=== PATIENT | female | born 1950 ===

== ENCOUNTER 2017-01-25 12:35 | Emergency (ER) | payer MEDICAID, OTHER ==
[2017-01-25 12:35] VITALS: BMI 32.7
[2017-01-25 12:50] VITALS: BP 123/63; RESP 16; TEMP 98; O2SAT 100
--- NOTE | 2017-01-25 13:27 | ED PDOC ---
Lower Extremity Pain/Injury Time Seen by Provider: 01/25/17 13:26 Chief Complaint (Nursing): Lower Extremity Problem/Injury History Per: Patient History/Exam Limitations: no limitations Onset/Duration Of Symptoms: Waxing/Waning Current Symptoms Are (Timing): Still Present Severity: Moderate Additional Complaint(s): 66-year-old female, PMHx includes Diabetes, Hypertension, Hypercholesterolemia, Hypothyroidism, Peripheral Edema, and Rheumatoid Arthritis, presents to the emergency department with complaints of foot pain. Patient states she sustained an injury to her left foot while walking very fast a few days ago. States she has been experiencing persistent pain, that is non-radiating. She notes associated swelling and bruising to the fourth digit. Patient denies nausea/ vomiting, numbness, tingling, or any other associated symptoms. No other complaints at this time. Past Medical History Reviewed: Historical Data, Nursing Documentation, Vital Signs Vital Signs: Last Vital Signs Temp 98.0 F 01/25/17 12:48 Pulse 98 H 01/25/17 12:48 Resp 16 01/25/17 12:48 BP 123/63 01/25/17 12:48 Pulse Ox 100 01/25/17 12:48 - Medical History PMH: Anemia, Asthma, Cardia Arrhythmia, Colonic Polyps, Gall Bladder Disease, HTN, Hypercholesterolemia, Hypothyroidism, Peripheral Edema, Rheumatoid Arthritis Denies: Chronic Kidney Disease - Surgical History Surgical History: Appendectomy, Endoscopy - Family History Family History: States: Unknown Family Hx - Home Medications Home Medications: Ambulatory Orders Medication Instructions Recorded Acetaminophen/Tramadol [place] PRN 05/17/14 [Tramadol/APAP 325 mg-37.5 mg] Albuterol Sulfate [Albuterol PRN 05/17/14 Sulfate 3 ml] Albuterol Sulfate [Ventolin Hfa] DAILY 05/17/14 Aspirin 81 mg PO DAILY 05/17/14 Cilostazol 100 mg PO BID 05/17/14 Clopidogrel [Plavix] 75 mg PO DAILY 05/17/14 Docusate Sodium 100 mg PO DAILY 05/17/14 Fluticasone Nasal [Flonase] 1 spr NS DAILY 05/17/14 Fluticasone/Salmeterol 250/50 PRN 05/17/14 [Advair Diskus 250/50] Gabapentin [Neurontin] 300 mg PO TID 05/17/14 GlipiZIDE SR [Glucotrol XL] 10 mg PO DAILY 05/17/14 Insulin Human Regular [Novolin R] PRN 05/17/14 Levothyroxine Sodium 0.15 mg PO DAILY 05/17/14 [Levothyroxine] Losartan Potassium 100 mg PO DAILY 05/17/14 Lovastatin 40 mg PO DAILY 05/17/14 Montelukast [Singulair] 10 mg PO DAILY 05/17/14 Omeprazole 20 mg PO DAILY 05/17/14 Sitagliptin Phosphate [Januvia] 100 mg PO TID 05/17/14 Ursodiol 300 mg PO TID 05/17/14 hydrOXYzine HCl [Atarax] 25 mg PO PRN 05/17/14 - Allergies Allergies/Adverse Reactions: Allergies Allergy/AdvReac Type Severity Reaction Status Date / Time No Known Allergies Allergy Verified 01/25/17 12:48 Review of Systems ROS Statement: Except As Marked, All Systems Reviewed And Found Negative Constitutional: Negative for: Fever Cardiovascular: Negative for: Chest Pain Respiratory: Negative for: Shortness of Breath Gastrointestinal: Negative for: Vomiting Musculoskeletal: Positive for: Foot Pain (Left). Negative for: Back Pain Neurological: Negative for: Weakness, Numbness, Headache, Dizziness Physical Exam - Reviewed Nursing Documentation Reviewed: Yes Vital Signs Reviewed: Yes - Physical Exam Appears: Positive for: Non-toxic, No Acute Distress Head Exam: Positive for: ATRAUMATIC, NORMOCEPHALIC Skin: Positive for: Warm, Dry. Negative for: Rash Eye Exam: Positive for: Normal appearance Neck: Positive for: Painless ROM Respiratory: Negative for: Accessory Muscle Use, Respiratory Distress Extremity: Positive for: Tenderness, Capillary Refill (<2 seconds), Deformity, Swelling, Other (LEFT foot: Swelling, deformity and echymosis to the 4th digit. Pain with range of motion. Pulses intact). Negative for: Pedal Edema, Calf Tenderness Neurologic/Psych: Positive for: Alert, Oriented - ECG O2 Sat by Pulse Oximetry: 100 - Radiology X-Ray: Interpreted by Or X-Ray Interpretation: Fracture (to 4th MTP DIP) Medical Decision Making Medical Decision Making: Impression: 66y/o F w/ left foot pain s/p injury 3 days ago Diff Dx (includes but not limited to) Fracture vs Contusion Plan: * X-Ray: L Foot (3 view) * Reassess and Disposition dX: fx to toe-pt with surgical shoe and cesar tape.f/u with podiatry Scribe Attestation: Documented by Delfina Matias, acting as a scribe for YOVANI Krishnan. Provider Attestation: All medical record entries made by the Scribe were at my direction and personally dictated by me. I have reviewed the chart and agree that the record accurately reflects my personal performance of the history, physical exam, medical decision making, and the department course for this patient. I have also personally directed, reviewed, and agree with the discharge instructions and disposition. Disposition - Clinical Impression Clinical Impression: Toe fracture - Patient ED Disposition Is Patient to be Admitted: No Counseled Patient/Family Regarding: Studies Performed, Diagnosis, Need For Followup - Disposition Referrals: [facility] [Outside] Podiatry Clinic [Outside] Disposition: Routine/Home Disposition Time: 14:08 Condition: STABLE Instructions: Toe Fracture (ED) Print Language: IRISH
[2017-01-25 14:18] VITALS: PULSE 87
--- NOTE | 2017-01-25 16:41 | RAD ---
PROCEDURE: Left Foot Radiographs. HISTORY: inury 4th digit COMPARISON: None. FINDINGS: BONES: Normal. No fracture. JOINTS: Normal. SOFT TISSUES: Normal. OTHER FINDINGS: None. IMPRESSION: No evidence of acute fracture or dislocation.
== END 2017-01-25 14:16 | disposition home or self-care (01) ==
LOC: H.ER 12:35
DX: S92.502A Displaced unspecified fracture of left lesser toe(s), initial encounter for closed fracture (principal); X50.9XXA Other and unspecified overexertion or strenuous movements or postures, initial encounter; Y92.89 Other specified places as the place of occurrence of the external cause

== ENCOUNTER 2017-06-28 12:24 | Emergency (ER) | payer MEDICARE, MEDICAID ==
[2017-06-28 12:25] VITALS: BMI 29.7
[2017-06-28 12:39] VITALS: RESP 20
--- NOTE | 2017-06-28 13:16 | ED PDOC ---
Arrival/HPI - General Chief Complaint: Cough, Cold, Congestion Historian: Patient, Family - History of Present Illness Narrative History of Present Illness (Text): 06/28/17 Juju Aleman is a 67 y/o female, whose past medical history includes asthma, Hypertension, DM, and thyroid illness, who presents to the ED complaining of a cough and flu-like symptoms for one week. Patient reports she has nasal congestion, mild Shortness of breath, and nausea. Patient denies any fever, chest pain, vomiting, headache, chill, or other complaints. Time/Duration: 1 week Symptom Onset: Sudden Symptom Course: Unchanged Past Medical History - Provider Review Nursing Documentation Reviewed: Yes - Cardiac Hx Cardiac Disorders: Yes Hx Angina: Yes Hx Cardiac Arrhythmia: Yes Hx Hypertension: Yes Hx Peripheral Edema: Yes Hx Peripheral Vascular Disease: Yes - Pulmonary Hx Respiratory Disorders: Yes Hx Asthma: Yes - Neurological Hx Neurological Disorder: Yes Other/Comment: PERIPHERAL NEUROPATHY - HEENT Hx HEENT Disorder: Yes (GLASSES) - Renal Hx Renal Disorder: No - Endocrine/Metabolic Hx Endocrine Disorders: Yes Hx Diabetes Mellitus Type 2: Yes Hx Hypothyroidism: Yes - Hematological/Oncological Hx Blood Disorders: Yes Hx Anemia: Yes Hx Hepatitis A: Yes - Integumentary Hx Dermatological Disorder: Yes Other/Comment: PRURITIS - Musculoskeletal/Rheumatological Hx Musculoskeletal Disorders: Yes Hx Rheumatoid Arthritis: Yes - Gastrointestinal Hx Gastrointestinal Disorders: Yes Hx Gall Bladder Disease: Yes HX Swallowing Problems: Yes Other/Comment: CONSTIPATION - Genitourinary/Gynecological Hx Genitourinary Disorders: No - Psychiatric Hx Psychophysiologic Disorder: No Hx Emotional Abuse: No Hx Physical Abuse: No Hx Substance Use: No - Surgical History Hx Angiogram: Yes (STENTS BOTH LEGS) Hx Angioplasty: Yes Hx Appendectomy: Yes Hx Breast Biopsy: Yes Hx Cardiac Catheterization: Yes Hx Tubal Ligation: Yes - Anesthesia Hx Anesthesia: Yes Hx Anesthesia Reactions: No Hx Malignant Hyperthermia: No - Suicidal Assessment Feels Threatened In Home Enviroment: No Family/Social History - Physician Review Nursing Documentation Reviewed: Yes Family/Social History: Unknown Family HX Smoking Status: Heavy Smoker > 10 Cigarettes Daily Hx Alcohol Use: No Hx Substance Use: No Allergies/Home Meds Allergies/Adverse Reactions: Allergies No Known Allergies Allergy (Verified 01/25/17 12:48) Home Medications: Home Meds Medication Instructions Recorded Confirmed Albuterol Sulfate [Albuterol 3 ml NEB Q6 05/17/14 06/07/17 Sulfate 3 ml] Cilostazol 100 mg PO BID 05/17/14 06/07/17 Clopidogrel [Plavix] 75 mg PO DAILY 05/17/14 06/07/17 Gabapentin [Neurontin] 400 mg PO QID 05/17/14 06/07/17 Montelukast [Singulair] 10 mg PO DAILY 05/17/14 06/07/17 Aspirin [Ecotrin] 81 mg PO DAILY 04/13/17 06/07/17 Folic Acid 1 mg PO DAILY 04/13/17 06/07/17 Hydrocortisone [Proctosol-Hc] 1 dose TP BID 04/13/17 06/07/17 Insulin Lispro [Humalog Kwikpen 10 unit SQ TID 04/13/17 06/07/17 U-100] Insulin Subcut. 1 dose SQ HS 04/13/17 06/07/17 Levothyroxine [Levoxyl] 0.125 mg PO DAILY 04/13/17 06/07/17 Losartan [Cozaar] 100 mg PO DAILY 04/13/17 06/07/17 Lovastatin 40 mg PO DAILY 04/13/17 06/07/17 MetFORMIN [glucoPHAGE] 1,000 mg PO BID 04/13/17 06/07/17 Naproxen 500 mg PO BID PRN 04/13/17 06/07/17 Omeprazole 40 mg PO DAILY 04/13/17 06/07/17 Ursodiol 250 mg PO QID 04/13/17 06/07/17 cycloSPORINE [Restasis] 1 drop OU BID 04/13/17 06/07/17 Review of Systems - Review of Systems Constitutional: absent: Fevers ENT: Sinus Congestion Respiratory: SOB, Cough Cardiovascular: absent: Chest Pain Gastrointestinal: Nausea. absent: Abdominal Pain, Vomiting Neurological: absent: Headache Physical Exam Vital Signs Reviewed: Yes Vital Signs Temp Pulse Resp BP Pulse Ox 06/28/17 12:36 99 F 110 H 20 129/55 L 97 Temperature: Afebrile Blood Pressure: Hypertensive Pulse: Tachycardic Respiratory Rate: Normal Appearance: Positive for: Well-Appearing, Non-Toxic, Comfortable Pain Distress: None Mental Status: Positive for: Alert and Oriented X 3 - Systems Exam Head: Present: Atraumatic, Normocephalic Mouth: Present: Moist Mucous Membranes Nose (Internal): Present: Other (mild congestion in nose) Neck: Present: Normal Range of Motion Respiratory/Chest: Present: Clear to Auscultation, Good Air Exchange. No: Respiratory Distress, Accessory Muscle Use Cardiovascular: Present: Regular Rate and Rhythm, Normal S1, S2. No: Murmurs Neurological: Present: GCS=15, CN II-XII Intact, Speech Normal Skin: Present: Warm, Dry, Normal Color. No: Rashes Psychiatric: Present: Alert, Oriented x 3, Normal Insight, Normal Concentration Medical Decision Making ED Course and Treatment: 06/28/2017 Impression: 67 y/o female with mild nose congestion. clear lungs on physical exam. Plan: -- Chest X-Ray -- Labs -- Duoneb -- Reassess and disposition Progress Notes: cxr: nad influenza a/b neg duoneb x 1 dose without improvement of cough Scribe Attestation: Documented by Nhi Arizmendi, acting as a scribe for Lance Geller PA-C Provider Scribe Attestation: All medical record entries made by the Scribe were at my direction and personally dictated by me. I have reviewed the chart and agree that the record accurately reflects my personal performance of the history, physical exam, medical decision making, and the department course for this patient. I have also personally directed, reviewed, and agree with the discharge instructions and disposition. 06/28/17 13:57 - Lab Interpretations Lab Results: Lab Results 06/28/17 13:20: Influenza Typ A,B (EIA) Negative for flu a/b I have reviewed the lab results: Yes - RAD Interpretation Radiology Orders: 06/28/17 13:12 CXR (PA&LAT) [CHEST TWO VIEWS (PA/LAT)] [RAD] Stat - Medication Orders Current Medication Orders: Discontinued Medications Albuterol/Ipratropium (Duoneb 3 Mg/0.5 Mg (3 Ml) Ud) 3 ml INH STAT STA Stop: 06/28/17 13:19 Last Admin: 06/28/17 13:28 Dose: 3 ml Disposition/Present on Arrival - Present on Arrival Any Indicators Present on Arrival: No - Disposition Have Diagnosis and Disposition been Completed?: Yes Diagnosis: Cough, Viral illness Disposition: HOME/ ROUTINE Disposition Time: 13:57 Patient Plan: Discharge Condition: FAIR Print Language: PORTUGUESE Prescriptions: Acetaminophen [Pain Reliever] 2 tab PO Q6 PRN #24 tablet PRN Reason: Fever >100.4 F Fluticasone Propionate [Flonase] 2 spr IN DAILY #1 bottle Promethazine/Codeine [Codeine/Promethazine 10 MG/5 Ml-6.25 MG/5 Ml] 5 ml PO Q12 PRN #100 ml PRN Reason: Cough Forms: [employer] (Slovenian), [facility] ED School/Work Excuse
[2017-06-28] MEDS ORDERED: Albuterol-Ipratrop 3 mg / 0.5 (3 ml) UD INH STA (13:18)
[2017-06-28] MEDS ORDERED: Albuterol-Ipratrop 3 mg / 0.5 (3 ml) UD ONE (13:25)
--- NOTE | 2017-06-28 14:29 | RAD ---
HISTORY: Cough. COMPARISON: 06/15/2016. TECHNIQUE: Chest PA and lateral FINDINGS: LUNGS: No active pulmonary disease. PLEURA: No significant pleural effusion identified. No pneumothorax apparent. CARDIOVASCULAR: Normal. OSSEOUS STRUCTURES: No significant abnormalities. VISUALIZED UPPER ABDOMEN: Normal. OTHER FINDINGS: None. IMPRESSION: No active disease. No significant interval change compared to the prior examination(s). Please note: No preliminary report/ innterpretation of this examination provided by emergency department personnel.
[2017-06-28 14:45] VITALS: BP 105/50; PULSE 102; TEMP 97.8; O2SAT 98
== END 2017-06-28 14:47 | disposition home or self-care (01) ==
LOC: H.ER 12:24
DX: B34.9 Viral infection, unspecified (principal); R05 Cough; I10 Essential (primary) hypertension; F17.210 Nicotine dependence, cigarettes, uncomplicated